=== PATIENT | female | born 1975 | race African-American/Black ===

== ENCOUNTER 2018-09-12 21:46 | Emergency (ER) | payer OTHER ==
[~2018-09-12] VITALS: Ht 162.6 cm; Wt 85.9 kg
[2018-09-12 21:55] VITALS: BP 120/74
--- NOTE | 2018-09-12 22:00 | NUR ---
TO ER BED
--- NOTE | 2018-09-12 22:13 | NUR ---
PT PRESENTS TO ED WITH C/O BUG BITE X 4 DAYS TO BILAT ARMS. NO REDNESS, OR RAISED BUMPS NOTED UPON ASSESSMENT.
[2018-09-12 22:25] VITALS: BP 120/74
--- NOTE | 2018-09-12 22:25 | NUR ---
Patient discharged with v/s stable. Written and verbal after care instructions given and explained. Patient verbalized understanding. Ambulatory with steady gait. All questions addressed prior to discharge. Advised to follow up with PMD.
== END 2018-09-12 22:25 | disposition home or self-care (01) ==
LOC: MED 21:46
DX: S80.861A Insect bite (nonvenomous), right lower leg, initial encounter (principal); W57.XXXA Bitten or stung by nonvenomous insect and other nonvenomous arthropods, initial encounter; Y93.89 Activity, other specified; Y92.89 Other specified places as the place of occurrence of the external cause; Y99.8 Other external cause status
CPT/HCPCS: 99281

== ENCOUNTER 2019-01-10 07:50 | Emergency (ER) | payer OTHER ==
[~2019-01-10] VITALS: Ht 160 cm; Wt 89.9 kg
--- NOTE | 2019-01-10 07:54 | NUR ---
PT AMBULATES TO BED 7
[2019-01-10 07:56] VITALS: BP 111/63
--- NOTE | 2019-01-10 08:00 | NUR ---
43 y/o F BIB [facility] WITH C/O RT 4TH DIGIT FINGER PAIN 8/10 S/P INJURED 2 DAYS AGO A CHAIR FELL ON TOP OF HER FINGER, PT STATES SHE IS UNABLE TO MOVE FINGER. DENIES LOC OR OTHER INJURY. ALSO C/O CHRONIC LT KNEE PAIN S/P TORN LEGAMENT ABOUT A YR AGO. WORSE AT NIGHT. +CMS. +PERIPHERAL PULSES. CAP REFILL <3. GENERALIZED NON PITTING EDEMA NOTED TO LOWER EXTREMITIES. PT DENIES N/V/D; AAOX4, PERRL, WITH EVEN AND STEADY GAIT; PT DENIES ANY FEVER, CP, SOB, OR COUGH AT THIS TIME; VSS; PATIENT POSITIONED FOR COMFORT; HOB ELEVATED; BEDRAILS UP X2; BED DOWN.
--- NOTE | 2019-01-10 08:09 | NUR ---
XRAY AT BEDSIDE
--- NOTE | 2019-01-10 08:14 | NUR ---
Patient being evaluated by physician at bedside.
[2019-01-10 08:42] VITALS: BP 111/63
== END 2019-01-10 08:43 | disposition home or self-care (01) ==
LOC: MED 07:50
DX: S56.115A Strain of flexor muscle, fascia and tendon of right ring finger at forearm level, initial encounter (principal); G89.29 Other chronic pain; M25.562 Pain in left knee; W20.8XXA Other cause of strike by thrown, projected or falling object, initial encounter; Y93.89 Activity, other specified; Y92.89 Other specified places as the place of occurrence of the external cause; Y99.8 Other external cause status
CPT/HCPCS: 29130; 73140; 99283; Q0092

== ENCOUNTER 2022-08-21 11:30 | Emergency (ER) | payer OTHER ==
[~2022-08-21] VITALS: Ht 160 cm; Wt 99.3 kg
[2022-08-21 11:42] VITALS: BP 128/71
--- NOTE | 2022-08-21 11:49 | NUR ---
PT AMBULATED TO THE BATHROOM
--- NOTE | 2022-08-21 12:35 | NUR ---
Female Milling Planer Operator accompanied female patient for Pelvic Exam.
[2022-08-21] MEDS ORDERED: VALA1TAB39 PO (14:38)
[2022-08-21] MEDS ORDERED: CEPH-588 PO (14:40)
--- NOTE | 2022-08-21 14:43 | NUR ---
LILLIANA Sutherland evaluating patient at bedside.
[2022-08-21 15:20] VITALS: BP 132/80
--- NOTE | 2022-08-21 15:20 | NUR ---
Patient discharged with v/s stable. Written and verbal after care instructions given. Patient alert, oriented and verbalized understanding of instructions. Ambulatory with steady gait. All questions addressed prior to discharge. ID band removed. Patient advised to follow up with PMD. Rx of KEFLEX AND VALACYCLOCIR given. Opportunity to ask questions provided and answered.
--- NOTE | 2022-08-21 15:21 | NUR ---
The patient's care was reviewed and supervised by Reynaldo Medina RN.
== END 2022-08-21 15:20 | disposition home or self-care (01) ==
LOC: MED 11:30
DX: N90.89 Other specified noninflammatory disorders of vulva and perineum (principal); N39.0 Urinary tract infection, site not specified; R03.0 Elevated blood-pressure reading, without diagnosis of hypertension; Z91.040 Latex allergy status
CPT/HCPCS: 36415; 81002; 81025; 86592; 86694; 87070; 87075; 87205; 87210; 87252; 87491; 87529; 99283